=== PATIENT | male | born 1980 | race Caucasian/White ===

== ENCOUNTER 2016-11-01 12:18 | Emergency (ER) | payer OTHER ==
[2016-11-01] MEDS ORDERED: KETOROLAC 60 MG/2 ML VIAL IM STA (12:40)
[2016-11-01] MEDS ORDERED: HYDROcodone/APAP 5-325MG 1 EACH TAB PO STA (12:40)
--- NOTE | 2016-11-01 12:50 | ED ---
General Adult HPI - General Chief complaint: Abdominal Pain Stated complaint: Right Flank Pain Time Seen by Provider: 11/01/16 12:31 Source: patient, RN notes reviewed, old records reviewed Mode of arrival: ambulatory Limitations: no limitations - History of Present Illness Initial comments: This is a 36-year-old male here for evaluation. This patient presents for evaluation of probable kidney stone right-sided flank pain dysuria. Blood in his urine. Patient has history of kidney stones history of chronic pain disease. No recent kidney stones or CAT scans noted. - Related Data Home Medications Medication Instructions Recorded Confirmed ALPRAZolam [Xanax] 0.5 mg PO 12/05/13 06/06/14 Dextroamphetamine/Amphetamine 20 mg PO BID 12/05/13 06/06/14 [Adderall] Previous Rx's Medication Instructions Recorded Cephalexin [Keflex] 250 mg PO Q6HR 10 Days 06/06/14 Allergies Allergy/AdvReac Type Severity Reaction Status Date / Time No Known Allergies Allergy Verified 06/06/14 20:06 Review of Systems ROS Statement: Those systems with pertinent positive or pertinent negative responses have been documented in the HPI. ROS Other: All systems not noted in ROS Statement are negative. Past Medical History Past Medical History: No Reported History Additional Past Medical History / Comment(s): kidney stones History of Any Multi-Drug Resistant Organisms: None Reported Past Surgical History: No Surgical Hx Reported Past Psychological History: Anxiety, Depression Smoking Status: Never smoker Past Alcohol Use History: None Reported Past Drug Use History: None Reported General Exam Limitations: no limitations General appearance: alert, in no apparent distress Head exam: Present: atraumatic, normocephalic, normal inspection Eye exam: Present: normal appearance, PERRL, EOMI. Absent: scleral icterus, conjunctival injection, periorbital swelling ENT exam: Present: normal exam, mucous membranes moist Neck exam: Present: normal inspection. Absent: tenderness, meningismus, lymphadenopathy Respiratory exam: Present: normal lung sounds bilaterally. Absent: respiratory distress, wheezes, rales, rhonchi, stridor Cardiovascular Exam: Present: regular rate, normal rhythm, normal heart sounds. Absent: systolic murmur, diastolic murmur, rubs, gallop, clicks GI/Abdominal exam: Present: soft, normal bowel sounds. Absent: distended, tenderness, guarding, rebound, rigid Extremities exam: Present: normal inspection, full ROM, normal capillary refill. Absent: tenderness, pedal edema, joint swelling, calf tenderness Back exam: Present: normal inspection Neurological exam: Present: alert, oriented X3, CN II-XII intact Psychiatric exam: Present: normal affect, normal mood Skin exam: Present: warm, dry, intact, normal color. Absent: rash Course Vital Signs 11/01/16 12:24 Temperature 99.1 F Pulse Rate 75 Respiratory 20 Rate Blood Pressure 122/74 O2 Sat by Pulse 98 Oximetry - Reevaluation(s) Reevaluation #1: 11/01/16 12:48 At this point patient's pain is much improved Medical Decision Making - Medical Decision Making 36-year-old here for evaluation of flank pain. Dysuria. No UTI, CT negative for cancer, patient given pain control can be discharged home - Radiology Data Radiology results: report reviewed (CT of abdomen and pelvis is negative for acute disease), image reviewed Disposition Clinical Impression: Abdominal pain, Kidney stone on right side Disposition: HOME SELF-CARE Condition: Good Instructions: Abdominal Pain (ED) Referrals: None,Stated [Primary Care Provider] - 1-2 days
[2016-11-01 12:54] LABS: Appearance,Urine Clear (Clear); Bilirubin,Urine Negative (Negative); Glucose,Urine (UA) Negative (Negative); Ketones,Urine Negative (Negative); Leukocyte Esterase,Urine Negative (Negative); Nitrite,Urine Negative (Negative); PH, Urine 5.5 (5.0-8.0); Protein,Urine Negative (Negative); Specific Gravity,Urine 1.023 (1.001-1.035); UA Billing (MACRO vs. MICRO) CHEM; Urobilinogen,Urine <2.0 mg/dL (<2.0)
--- NOTE | 2016-11-01 13:49 | CT ---
EXAMINATION TYPE: CT abdomen pelvis wo con DATE OF EXAM: 11/01/2016 1:22 PM COMPARISON: Previous study dated 12/12/2012 HISTORY: Right flank pain CT DLP: 917 mGycm Automated exposure control for dose reduction was used. FINDINGS: There is mild dependent atelectasis in the dependent portions of the lungs. There is no ple ural or pericardial fluid. The heart is mildly enlarged. There is elevation of the right hemidiaphrag m. Within the abdomen, there is mild hepatomegaly with the liver measuring 18 cm. The spleen and gallbla dder appear normal. There is a small splenule in the hilum of the spleen. Both adrenal glands are normal. There is no evidence of nephrolithiasis or hydronephrosis. The pancreas is unremarkable. There is no significant retroperitoneal, iliac or inguinal adenopathy. The bladder is not distended. There are occasional diverticula throughout the left side of the colon without radiographic evidence of diverticulitis. The appendix is normal. There is apparent mucosal thickening in the splenic flexure. This may be due to lack of colonic distention. Small bowel loops are normal. There is no free fluid and no free air identified. There is a small umbilical hernia containing fat only with a mouth measuring 11.4 mm. There is no definite osseous lesion. IMPRESSION: 1. MILD CARDIOMEGALY. 2. MILD HEPATOMEGALY. 3. MINIMAL DIVERTICULOSIS OF THE LEFT SIDE OF THE COLON. 4. APPARENT THICKENING OF THE MUCOSAL NEAR THE SPLENIC FLECTURE. PLEASE CORRELATE CLINICALLY TO EXCLU DE COLITIS. 5. SMALL UMBILICAL HERNIA CONTAINING FAT ONLY.
[2016-11-01 13:55] VITALS: BP 127/75; PULSE 72; RESP 16; TEMP 97.8
== END 2016-11-01 13:55 | disposition home or self-care (01) ==
LOC: EC 12:18
DX: N20.0 Calculus of kidney (principal); F41.9 Anxiety disorder, unspecified; F32.9 Major depressive disorder, single episode, unspecified; Z79.899 Other long term (current) drug therapy
CPT/HCPCS: 81003; 87086; 74176; 99285; 96372; J1885

== ENCOUNTER → 2018-09-29 | Outpatient (CLI) | payer OTHER ==
[2018-09-29 13:17] LABS: HCT 45.9 % (39.0-53.0); HGB 15.9 gm/dL (13.0-17.5); MCHC 34.6 g/dL (31.0-37.0); MCV 89.5 fL (80.0-100.0); Mean Platelet Volume 6.6; Platelet Count 411 k/uL (150-450); RBC 5.13 m/uL (4.30-5.90); RDW 12.8 % (11.5-15.5); WBC 7.4 k/uL (3.8-10.6)
[2018-09-29 19:53] LABS: Albumin 4.7 g/dL (3.80-4.90); Albumin/Globulin Ratio 1.96 (1.60-3.17); Anion Gap 9.3 mmol/L (4.00-12.00); Calcium 9.5 mg/dL (8.7-10.3); Carbon Dioxide 24.7 mmol/L (21.6-31.8); Globulin 2.4 g/dL (1.6-3.3); Potassium 4.4 mmol/L (3.5-5.5); Total Bilirubin 0.5 mg/dL (0.2-1.2); Total Protein 7.1 g/dL (6.2-8.2)
[2018-09-29 20:10] LABS: Vitamin D 25 Hydroxy 19.8 ng/mL (30.0-100.0)
[2018-09-29 20:35] LABS: HIV 1 AB Non-Reactive (Non-Reactive); HIV AB P24 Non-Reactive (Non-Reactive); HIV P24 AG Non-Reactive (Non-Reactive); Hepatitis C IgG Antibody Reactive (Non-Reactive)
== END | disposition home or self-care (01) ==
LOC: LABWHC1 11:19
PROVIDERS: ATTEND Nurse Practitioner Adult Health
DX: F19.10 Other psychoactive substance abuse, uncomplicated (principal); E53.8 Deficiency of other specified B group vitamins
CPT/HCPCS: 36415; 80053; 82306; 82607; 84443; 85027; 86803; 87390

== ENCOUNTER → 2018-10-13 | Outpatient (CLI) | payer OTHER | LOC: LABWHC1 11:00 | PROVIDERS: ATTEND Nurse Practitioner Adult Health | DX: Z53.9 Procedure and treatment not carried out, unspecified reason (principal) ==

== ENCOUNTER 2018-10-18 12:01 | Emergency (ER) | payer OTHER ==
[2018-10-18 12:06] VITALS: RESP 18
--- NOTE | 2018-10-18 12:17 | ED ---
General Adult HPI - General Chief complaint: Headache Stated complaint: HEADACHES Time Seen by Provider: 10/18/18 12:06 Source: patient, RN notes reviewed, old records reviewed Mode of arrival: ambulatory Limitations: no limitations - History of Present Illness Initial comments: 38-year-old male patient presents to ED with complaint of headache for approxi mately 2 years. Patient reports that shortly after wakes up by day basis he normally has a mild frontal lobe headache. Patient reports that this headache resolves with Tylenol or ibuprofen. Patient has any recent falls or trauma. Patient denies any personal history of bleed, hyper/hypocoagulable state, familial or personal history of polycystic kidney disease. He states that he does not currently have a headache. Patient states that he primarily wants imaging of his head and evaluation. Denies any other complaints. Denies fevers chills nausea vomiting diarrhea chest pain shortness of breath abdominal pain. Systemic: Pt denies fatigue, myalgia, fever/chills, rash. Pt denies weakness, night sweats, weight loss. Neuro: Pt denies visual disturbances, syncope or pre-syncope. HEENT: Pt denies ocular discharge or irritation, otalgia, rhinorrhea, pharyngitis or notable lymphadenopathy. Cardiopulmonary: Pt denies chest pain, SOB, heart palpitations, dyspnea on exertion. Abdominal/GI: Pt denies abdominal pain, n/v/d. : Pt denies dysuria, burning w/ urination, frequency/urgency. Denies new onset urinary or bowel incontinence. MSK: Pt denies myalgia, loss of strength or function in extremities. Neuro: Pt denies new onset weakness, paresthesias. - Related Data Home Medications Medication Instructions Recorded Confirmed Buprenorphine HCl/Naloxone HCl 1 film SL TID 10/18/18 10/18/18 [Suboxone 8 mg-2 mg Sl Film] Allergies Allergy/AdvReac Type Severity Reaction Status Date / Time No Known Allergies Allergy Verified 10/18/18 12:54 Review of Systems ROS Statement: Those systems with pertinent positive or pertinent negative responses have been documented in the HPI. ROS Other: All systems not noted in ROS Statement are negative. Past Medical History Past Medical History: No Reported History Additional Past Medical History / Comment(s): kidney stones History of Any Multi-Drug Resistant Organisms: None Reported Past Surgical History: No Surgical Hx Reported Past Psychological History: Anxiety, Depression Smoking Status: Former smoker Past Alcohol Use History: Occasional Past Drug Use History: None Reported, Heroin, IV Drug Use, Marijuana General Exam - General Exam Comments Initial Comments: Constitutional: NAD, AOX3, Pt has pleasant affect. HEENT: NC/AT, trachea midline, neck supple, no lymphadenopathy. Posterior pharynx non erythematous, without exudates. External ears appear normal, without discharge. Mucous membranes moist. Eyes PERRLA, EOM intact. There is no scleral icterus. No pallor noted. Cardiopulmonary: RRR, no murmurs, rubs or gallops, no JVD noted. Lungs CTAB in anterior and posterior jacob. No peripheral edema. Abdominal exam: Abdomen soft and non-distended. Abdomen non-tender to palpation in all 4 quadrants. Bowel sounds active in LLQ. No hepatosplenomegaly. No ecchymosis Neuro: CN II-XII intact. No nuchal rigidity. MSK: No posterior calf tenderness bilaterally, homans sign negative bilaterally. Posterior tibialis and radial pulse +2 bilaterally. Sensation intact in upper and lower extremities. Full active ROM in upper and lower extremities, 5/5 stregnth. Limitations: no limitations Course Vital Signs 10/18/18 12:02 Temperature 97.4 F L Pulse Rate 63 Respiratory 18 Rate Blood Pressure 112/71 O2 Sat by Pulse 98 Oximetry Medical Decision Making - Medical Decision Making 38-year-old male patient presents to ED with complaint of headache for approximately 2 years. Patient reports that shortly after wakes up by day basis he normally has a mild frontal lobe headache. Patient reports that this headache resolves with Tylenol or ibuprofen. Patient has any recent falls or trauma. Patient denies any personal history of bleed, hyper/hypocoagulable state, familial or personal history of polycystic kidney disease. He states that he does not currently have a headache. Patient states that he primarily wants imaging of his head and evaluation. Denies any other complaints. Denies fevers chills nausea vomiting diarrhea chest pain shortness of breath abdominal pain. Pt VSS, afebrile. Physical exam revealed normal neurologic exam. Repeat neurologic exam wnl. Noncontrast CT of brain revealed suggestion of faint white matter low attenuation. These findings were explained to patient. Pt is still asymptomatic, does not have headache. Patient discharged, patient will be provided neurology follow-up. Patient will contact neurologist today for follow-up appointment as soon as possible. Patient was additionally given primary care provider follow-up. Patient will follow up with primary care provider today as well. Patient return to ER if condition worsens in any way. Case discussed with Dr. Victoria. Disposition Clinical Impression: Headache Disposition: HOME SELF-CARE Condition: Stable Instructions (If sedation given, give patient instructions): Acute Headache (ED) Additional Instructions: Patient to adhere to previously discussed treatment plan and will take medication(s) as directed. Patient to follow up with PCP in 1-2 days. Patient to return to ED if symptoms do not improve. Please contact neurologist today. Please contact primary care provider today. Please follow-up within 1-2 days. Return to ER if condition worsens in any way. Is patient prescribed a controlled substance at d/c from ED?: No Referrals: None,Stated [Primary Care Provider] - 1-2 days [facility] - 1-2 days Josiah Nolan MD [Medical Doctor] - 1-2 days
--- NOTE | 2018-10-18 12:39 | CT ---
EXAMINATION TYPE: CT brain wo con DATE OF EXAM: 10/18/2018 COMPARISON: None HISTORY: Patient complains of headache. CT DLP: 1131.4 mGycm. Automated Exposure Control for Dose Reduction was Utilized. TECHNIQUE: CT scan of the head is performed without contrast. FINDINGS: There is no acute intracranial hemorrhage, mass effect, or midline shift identified. The ventricles and sulci are within normal limits in size. Changes of chronic sinusitis are noted. Faint periventricular areas of low-attenuation the white matter. Partially empty sella turcica noted. IMPRESSION: No acute intracranial hemorrhage, mass effect, or midline shift is seen. Suggestion of f aint white matter low-attenuation. This could be correlated with MRI to determine if there is evidenc e of demyelinating disease or remote microvascular ischemia. Correlate clinically.
[2018-10-18 13:32] VITALS: BP 108/69; PULSE 83; TEMP 98.3
== END 2018-10-18 13:32 | disposition home or self-care (01) ==
LOC: EC 12:01
DX: R51 Headache (principal); Q61.3 Polycystic kidney, unspecified; Z87.891 Personal history of nicotine dependence; Z87.442 Personal history of urinary calculi; Z79.899 Other long term (current) drug therapy
CPT/HCPCS: 70450; 99284

== ENCOUNTER → 2018-11-29 | Outpatient (CLI) | payer OTHER ==
--- NOTE | 2018-11-30 13:54 | US ---
EXAMINATION TYPE: US liver DATE OF EXAM: 11/29/2018 COMPARISON: CT 2017 CLINICAL HISTORY: B19.20 Unspecified viral hepatitis C without.... Hep C, occasional right flank pain EXAM MEASUREMENTS: Liver Length: 15.3 cm Gallbladder Wall: 0.2 cm CBD: 0.3 cm Right Kidney: 11.3 x 5.8 x 5.7 cm Pancreas: obscured by overlying midline bowel gas Liver: wnl Gallbladder: wnl Evidence for sonographic Singh's sign: no CBD: visualized portions wnl, limited by overlying bowel gas Right Kidney: wnl IMPRESSION: 1. Visualized right upper quadrant ultrasound is unremarkable.
== END | disposition home or self-care (01) ==
LOC: RADUSWWP 16:18
PROVIDERS: ATTEND Internal Medicine Gastroenterology
DX: B19.20 Unspecified viral hepatitis C without hepatic coma (principal)
CPT/HCPCS: 76705

== ENCOUNTER 2023-07-12 09:34 | Emergency (ER) | payer OTHER ==
[2023-07-12 09:48] VITALS: PULSE 85; TEMP 98.2
[2023-07-12] MEDS ORDERED: ACETAMINOPHEN TAB 325 MG TAB PO STA (10:26)
--- NOTE | 2023-07-12 10:30 | ED ---
URI HPI - General Chief Complaint: Upper Respiratory Infection Stated Complaint: Cough Time Seen by Provider: 07/12/23 10:17 Source: patient, RN notes reviewed Mode of arrival: ambulatory Limitations: no limitations - History of Present Illness Initial Comments: Patient is a 43-year-old male presented ER with a chief complaint of cough. Patient states this going on for the past 3 days. Patient states that his coworkers have also been ill lately. Patient denies any past medical history. He admits he has been slightly congested. He has been trying [id number] [place] without relief. He also admits to some recent diarrhea. Denies any shortness of breath, wheezing, chest pain, abdominal pain. - Related Data Home Medications Medication Instructions Recorded Confirmed Buprenorphine HCl/Naloxone HCl 1 film SL TID 10/18/18 10/18/18 [Suboxone 8 mg-2 mg Sl Film] Allergies Allergy/AdvReac Type Severity Reaction Status Date / Time No Known Allergies Allergy Verified 07/12/23 09:37 Review of Systems ROS Statement: Those systems with pertinent positive or pertinent negative responses have been documented in the HPI. ROS Other: All systems not noted in ROS Statement are negative. Past Medical History Past Medical History: No Reported History Additional Past Medical History / Comment(s): kidney stones History of Any Multi-Drug Resistant Organisms: None Reported Past Surgical History: No Surgical Hx Reported Past Psychological History: Anxiety, Depression Past Alcohol Use History: Occasional Past Drug Use History: None Reported, Heroin, IV Drug Use, Marijuana General Exam Limitations: no limitations General appearance: alert, in no apparent distress Head exam: Present: atraumatic, normocephalic, normal inspection ENT exam: Present: normal exam, normal oropharynx, mucous membranes moist, TM's normal bilaterally Neck exam: Present: normal inspection. Absent: tenderness, meningismus, lymphadenopathy Respiratory exam: Present: normal lung sounds bilaterally. Absent: respiratory distress, wheezes, rales, rhonchi, stridor Cardiovascular Exam: Present: regular rate, normal rhythm, normal heart sounds. Absent: systolic murmur, diastolic murmur, rubs, gallop, clicks GI/Abdominal exam: Present: soft, normal bowel sounds. Absent: distended, tenderness, guarding, rebound, rigid Neurological exam: Present: alert, oriented X3, CN II-XII intact Psychiatric exam: Present: normal affect, normal mood Skin exam: Present: warm, dry, intact, normal color. Absent: rash Course Vital Signs 07/12/23 09:37 Temperature 98.2 F Pulse Rate 85 Respiratory 16 Rate Blood Pressure 127/85 O2 Sat by Pulse 97 Oximetry Medical Decision Making - Medical Decision Making Was pt. sent in by a medical professional or institution (ISAAC Lange, LABORATORY MONITOR, urgent care, hospital, or retirement...) When possible be specific @ -No Did you speak to anyone other than the patient for history (EMS, parent, family, police, friend...)? What history was obtained from this source @ -No Did you review nursing and triage notes (agree or disagree)? Why? @ -I reviewed and agree with nursing and triage notes Were old charts reviewed (outside hosp., previous admission, EMS record, old EKG, old radiological studies, urgent care reports/EKG's, retirement records)? Report findings @ -No old charts were reviewed Differential Diagnosis (chest pain, altered mental status, abdominal pain women, abdominal pain men, vaginal bleeding, weakness, fever, dyspnea, syncope, headache, dizziness, GI bleed, back pain, seizure, CVA, palpatations, mental health, musculoskeletal)? @ -COVID-19, RSV, influenza, viral sinusitis, pneumonia EKG interpreted by me (3pts min.). @ -None X-rays interpreted by me (1pt min.). @ -None done CT interpreted by me (1pt min.). @ -None done U/S interpreted by me (1pt. min.). @ -None done What testing was considered but not performed or refused? (CT, X-rays, U/S, labs)? Why? @ -None What meds were considered but not given or refused? Why? @ -None Did you discuss the management of the patient with other professionals (professionals i.e. ISAAC Lange, LABORATORY MONITOR, lab, RT, psych nurse, social service technician, commercial account executive, teacher, navy airspace officer, caser)? Give summary @ -No Was smoking cessation discussed for >3mins.? @ -No Was critical care preformed (if so, how long)? @ -No Were there social determinants of health that impacted care today? How? (Homelessness, low income, unemployed, alcoholism, drug addiction, transportation, low edu. Level, literacy, decrease access to med. care, senior care, rehab)? @ -No Was there de-escalation of care discussed even if they declined (Discuss DNR or withdrawal of care, Hospice)? DNR status @ -No What co-morbidities impacted this encounter? (DM, HTN, Smoking, COPD, CAD, Cancer, CVA, ARF, Chemo, Hep., AIDS, mental health diagnosis, sleep apnea, morbid obesity)? @ -None Was patient admitted / discharged? Hospital course, mention meds given and route, prescriptions, significant lab abnormalities, going to OR and other pertinent info. @ -Discharge. Patient is a 43-year-old male presented ER with chief complaint of a cough. Vitals stable. History and physical exam were completed. Viral swabs obtained the ER were significant for RSV. Patient received by mouth Tylenol for symptom control in the ER. Lab findings were discussed with patient. I advised [id number] Tylenol and Motrin for symptom control. Return parameters were discussed. Patient will be discharged in stable condition with follow-up to PCP. Patient expressed understanding and agreement with care plan. Undiagnosed new problem with uncertain prognosis? @ -No Drug Therapy requiring intensive monitoring for toxicity (Heparin, Nitro, Insulin, Cardizem)? @ -No Were any procedures done? @ -No Diagnosis/symptom? @ -RSV Acute, or Chronic, or Acute on Chronic? @ -Acute Uncomplicated (without systemic symptoms) or Complicated (systemic symptoms)? @ -Uncomplicated Side effects of treatment? @ -No Exacerbation, Progression, or Severe Exacerbation? @ -No Poses a threat to life or bodily function? How? (Chest pain, [place], SD, pneumonia, PE, COPD, DKA, ARF, appy, cholecystitis, CVA, Diverticulitis, Homicidal, Suicidal, threat to staff... and all critical care pts) @ -No - Lab Data Lab Results 07/12/23 Range/Units 09:39 Influenza Type A (PCR) Not Detected (Not Detectd) Influenza Type B (PCR) Not Detected (Not Detectd) RSV (PCR) Detected A (Not Detectd) SARS-CoV-2 (PCR) Not Detected (Not Detectd) Disposition Clinical Impression: RSV (acute bronchiolitis due to respiratory syncytial virus) Disposition: HOME SELF-CARE Condition: Stable Additional Instructions: Please use [id number] Tylenol and Motrin for fever and symptom control. Please follow-up with PCP. Return to the ER for any new or worsening symptoms. Is patient prescribed a controlled substance at d/c from ED?: No Referrals: None,Stated [Primary Care Provider] - 1-2 days Time of Disposition: 10:31
[2023-07-12 11:02] VITALS: BP 123/83; RESP 18
== END 2023-07-12 10:58 | disposition home or self-care (01) ==
LOC: EC 09:34
DX: J21.0 Acute bronchiolitis due to respiratory syncytial virus (principal); Z20.822 Contact with and (suspected) exposure to COVID-19; Z86.59 Personal history of other mental and behavioral disorders
CPT/HCPCS: 87636; 99283